=== PATIENT | female | born 2000 | race Two or more races ===

== ENCOUNTER 2020-10-07 21:57 | Emergency (ER) | payer SELFPAY ==
[~2020-10-07] VITALS: Ht 165.1 cm; Wt 68.2 kg
[2020-10-07 22:08] VITALS: BP 117/55
[2020-10-07] MEDS ORDERED: DOXY100T PO (22:17)
--- NOTE | 2020-10-07 22:17 | PHYS DOC ---
General Adult EDM: Chief Complaint: SEXUALLY TRANSMITTED DISEASE HPI: HPI: Patient is a 20 year old female with no significant medical history who presents to the ED today requesting STD treatment. Patient states she had intercourse with a man that reported his other girlfriend tested positive for gonorrhea. Patient denies any symptoms Review of Systems: Review of Systems: Constitutional: Denies fever or chills. [] GI: Denies abdominal pain, nausea, vomiting, bloody stools or diarrhea. [] : Reports concerns for STDs. Denies dysuria. [] Musculoskeletal: Denies back pain or joint pain. [] Integument: Denies rash. [] Neurologic: Denies headache, focal weakness or sensory changes. [] Psychiatric: Denies depression or anxiety. [] Heart Score: Risk Factors: Risk Factors: DM, Current or recent (<one month) smoker, HTN, HLP, family history of CAD, obesity. Risk Scores: Score 0 - 3: 2.5% MACE over next 6 weeks - Discharge Home Score 4 - 6: 20.3% MACE over next 6 weeks - Admit for Clinical Observation Score 7 - 10: 72.7% MACE over next 6 weeks - Early Invasive Strategies Physical Exam: PE: Constitutional: Well developed, well nourished, no acute distress, non-toxic appearance. [] Skin: Warm, dry, no erythema, no rash. [] Back: No tenderness, no CVA tenderness. [] Extremities: No tenderness, no cyanosis, no clubbing, ROM intact, no edema. [] Neurologic: Alert and oriented X 3, normal motor function, normal sensory function, no focal deficits noted. [] Psychologic: Affect normal, judgement normal, mood normal. [] EKG: EKG: [] Radiology/Procedures: Radiology/Procedures: [] Course & Med Decision Making: Course & Med Decision Making Pertinent Labs and Imaging studies reviewed. (See chart for details) This is a 20-year-old female patient presenting to the ED today requesting STD treatment. She reports having intercourse with a male that had intercourse with another female that was positive for gonorrhea. Patient has no symptoms. Was given the new STD treatment and discharged on doxycycline. Dragon Disclaimer: Dragon Disclaimer: This electronic medical record was generated, in whole or in part, using a voice recognition dictation system. Departure Departure Impression: Primary Impression: Concern about STD in female without diagnosis Disposition: 01 DC HOME SELF CARE/HOMELESS Condition: STABLE Patient Instructions: Sexually Transmitted Disease Additional Instructions: You were treated for sexually transmitted diseases. Use protection at all times. Please consider not having intercourse for 1 week. Please complete the prescribed antibiotics as part of your STD treatment. Scripts Doxycycline Hyclate (DOXYCYCLINE HYCLATE) 100 Mg Tablet 1 TAB PO BID, #14 TAB Prov: ABIDA RAMOS APRN 10/07/20 ABIDA RAMOS APRN Oct 07, 2020 22:17
[2020-10-07 22:25] LABS: BILIRUBIN,URINE NEGATIVE (NEG); CLARITY,URINE CLEAR; COLOR,URINE YELLOW; NITRITE,URINE NEGATIVE (NEG); PH,URINE 7.5 (<5.0-8.0); PROTEIN,URINE NEGATIVE (NEG-TRACE)
[2020-10-07 22:33] LABS: AMORPHOUS SEDIMENT,UR PRESENT /HPF; BACTERIA,URINE 0 /HPF (0-FEW); RBC,URINE 0 /HPF (0-2)
[2020-10-07] MEDS: metroNIDAZOLE 500 MG TABLET PO ONE (22:51)
[2020-10-07] MEDS: cefTRIAXone IM 500 MG VIAL. IM ONE (22:51)
[2020-10-07] MEDS: DOXYCYCLINE HYCLATE 100 MG TABLET PO ONE (22:51)
== END 2020-10-07 23:04 | disposition home or self-care (01) ==
LOC: ER 21:57
DX: Z20.2 Contact with and (suspected) exposure to infections with a predominantly sexual mode of transmission (principal)
CPT/HCPCS: 81001; 81025; 87491; 87591; 96372; 99283; J0696

== ENCOUNTER 2020-11-12 16:54 | Emergency (ER) | payer SELFPAY ==
[~2020-11-12] VITALS: Ht 165.1 cm; Wt 70.5 kg
[~2020-11-12 16:54] MED LIST: DOXY100T PO
[2020-11-12 17:26] VITALS: BP 126/56
[2020-11-12 18:40] LABS: BILIRUBIN,URINE NEGATIVE (NEG); CLARITY,URINE CLEAR; COLOR,URINE YELLOW; NITRITE,URINE NEGATIVE (NEG); PROTEIN,URINE NEGATIVE (NEG-TRACE); UROBILINOGEN,URINE 0.2 mg/dL (0.2 mg/dL)
[2020-11-12 19:04] LABS: HYALINE CASTS, URINE FEW /HPF
[2020-11-12 19:06] LABS: BACTERIA,URINE FEW /HPF (0-FEW); RBC,URINE 0 /HPF (0-2); WBC,URINE OCC /HPF (0-4)
[2020-11-12] MEDS ORDERED: CYCL10TA2 PO (19:13)
[2020-11-12] MEDS ORDERED: NAPR-514 PO (19:13)
--- NOTE | 2020-11-12 19:13 | ED.ADGEN ---
Past Medical History Past Medical History: No Pertinent History Past Surgical History: No Surgical History Smoking Status: Never Smoker Alcohol Use: None General Adult EDM: Chief Complaint: BACK PAIN OR INJURY HPI: HPI: Patient is a 20 year old female who presents emergency department with complaints of pain to her right lower back for the last 2 weeks. Patient denies any known injury, recent trauma, or fall. Patient reports that the pain is worse with palpation and movement. 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 She denies any radiation of the pain to her right lower extremity. She denies any saddle anesthesia, or loss of bowel/bladder control. Patient also denies any fever, cough, shortness of breath, chest pain, abdominal pain, dysuria, hematuria, irregular vaginal discha rge, vaginal odor, increased urinary frequency or incontinence. Currently rates pain a 3 out of 10 on the pain scale, she denies any factors, the pain is worse with palpation and movement. Review of Systems: Review of Systems: Complete ROS is negative unless otherwise noted in HPI. Allergies: Allergies: Allergies Coded Allergies Type Severity Reaction Last Updated Verified No Known Drug Allergies 10/07/20 No Physical Exam: PE: See Above Constitutional: Well developed, well nourished, no acute distress, non-toxic appearance. [] HENT: Normocephalic, atraumatic, bilateral external ears normal, nose normal. [] Eyes: PERRLA, EOMI, conjunctiva normal, no discharge. [] Neck: Normal range of motion, no stridor. [] Cardiovascular:Heart rate regular rhythm Lungs & Thorax: Respirations even and unlabored, no retractions, no respiratory distress Abdomen: soft, no tenderness Back: No bony tenderness or deformity, no step-offs, no crepitus; right lumbar paraspinal tenderness to palpation, negative straight leg lift bilaterally Skin: Warm, dry, no erythema, no rash. [] Extremities: No cyanosis, ROM intact, no edema. [] Neurologic: Alert and oriented X 3, normal motor, normal sensory, no focal deficits noted. [] Psychologic: Affect normal, judgement normal, mood normal. [] Current Patient Data: Labs: Laboratory Tests Test 11/12/20 18:20 11/12/20 18:38 Urine Collection Type Unknown Urine Color Yellow Urine Clarity Clear Urine pH 7.0 (<5.0-8.0) Urine Specific [place] 1.020 (1.000-1.030) Urine Protein Negative mg/dL (NEG-TRACE) Urine Glucose (UA) Negative mg/dL (NEG) Urine Ketones (Stick) 15 mg/dL (NEG) Urine Blood Negative (NEG) Urine Nitrite Negative (NEG) Urine Bilirubin Negative (NEG) Urine Urobilinogen Dipstick 0.2 mg/dL (0.2 mg/dL) Urine Leukocyte Esterase Small (NEG) Urine RBC 0 /HPF (0-2) Urine WBC Occ /HPF (0-4) Urine Squamous Epithelial Cells Many /LPF Urine Bacteria Few /HPF (0-FEW) Urine Hyaline Casts Few /HPF Urine Mucus Marked /LPF POC Urine HCG, Qualitative Hcg negative (Negative) Vital Signs: Vital Signs Date Time Temp Pulse Resp B/P (MAP) Pulse Ox O2 Delivery O2 Flow Rate FiO2 11/12/20 17:26 97.8 69 16 126/56 (79) 97 Room Air 97.8 EKG: EKG: [] Heart Score: C/O Chest Pain: No Risk Factors: Risk Factors: DM, Current or recent (<one month) smoker, HTN, HLP, family history of CAD, obesity. Risk Scores: Score 0 - 3: 2.5% MACE over next 6 weeks - Discharge Home Score 4 - 6: 20.3% MACE over next 6 weeks - Admit for Clinical Observation Score 7 - 10: 72.7% MACE over next 6 weeks - Early Invasive Strategies Radiology/Procedures: Radiology/Procedures: [] Course & Med Decision Making: Course & Med Decision Making Pertinent Labs and Imaging studies reviewed. (See chart for details) [] Dragon Disclaimer: Patricia Disclaimer: This electronic medical record was generated, in whole or in part, using a voice recognition dictation system. Departure Departure Impression: Primary Impression: Acute right-sided low back pain without sciatica Disposition: 01 DC HOME SELF CARE/HOMELESS Condition: STABLE Referrals: NO PCP (PCP) Patient Instructions: Low Back Strain with Rehab-Sports[facility] Additional Instructions: Fill the prescription(s) and use as directed. Apply heat or ice for to sore areas as needed for comfort. Activity as tolerated. Follow up with your primary care doctor this week if symptoms persist, return to the ER if symptoms worsen or you develop a fever. Scripts Naproxen (NAPROXEN) 500 Mg Tablet 1 TAB PO BID PRN for PAIN for 10 Days, #20 TAB 0 Refills Prov: LIS RILEY APRN 11/12/20 Cyclobenzaprine Hcl (CYCLOBENZAPRINE HCL) 10 Mg Tablet 1 TAB PO TID PRN for MUSCLE PAIN for 10 Days, #30 TAB 0 Refills Prov: LIS RILEY APRN 11/12/20 LIS RILEY APRN Nov 12, 2020 19:13
== END 2020-11-12 19:27 | disposition home or self-care (01) ==
LOC: ER 16:54
DX: M54.5 Low back pain (principal)
CPT/HCPCS: 81001; 81025; 87086; 99283